=== PATIENT | female | born 1960 | race Two or more races ===

== ENCOUNTER 2024-05-28 19:16 | Emergency (ER) | payer BC, SELFPAY ==
[2024-05-28 19:16] VITALS: BMI 27.4
[2024-05-28 19:42] VITALS: BP 125/80; PULSE 78; RESP 18; TEMP 36.9; O2SAT 99
[2024-05-28] MEDS: TETRACAINE PF OP SOL 0.5% 4 ML DRPETTE 1 DROP LEFT EYE (20:14)
[2024-05-28] MEDS: FLUORESCEIN SOD 1 MG STRP LEFT EYE (20:14)
--- NOTE | 2024-05-28 20:47 | EDNOTE_ITS ---
ED Eye Problem RME/HPI General Chief complaint: Eye Problems Stated complaint: Swelling and redness to left eye Time Seen by Provider: 05/28/24 20:03 Arrival date/time: 05/28/24 19:16 63F with history of DM presents to ED with 3 days of L eye redness. Patient woke up like that w/o known fall/trauma. Patient denies pain initially, though there is some irritation now. Patient denies discharge, vision changes, LOC, AMS, seizures, N/V, and slurred speech. Limitations: no limitations Related Data Home Medications ?Medication ?Instructions ?Recorded ?Confirmed atorvastatin 20 mg tablet 20 mg PO QDAY 03/25/1804/30 metformin 1,000 mg tablet 1,000 mg PO BID 03/25/1809/11 Previous Rx's ?Medication ?Instructions ?Recorded ondansetron 4 mg disintegrating 4 mg PO Q4HR PRN nause a and 03/09/19 tablet vomiting #10 tabs psyllium husk 3 gram/5.4 gram oral 1 tbsp PO QDAY PRN constipation 10/25/20 powder #284 grams pantoprazole 40 mg tablet,delayed 40 mg PO QDAY #30 ta bs 10/01/22 release (Protonix) Allergies Allergy/AdvReac Type Severity Reaction Status Date / Time No Known Allergies Allergy Verified 05/15/22 19:38 Review of Systems Review of Systems Systems Reviewed: All systems reviewed, normal except as documented Constitutional Constitutional: Reports system reviewed and no additional complaints, except as documented, Denies fever(s) and Denies headache(s) Eyes Eyes: Reports as per HPI and Reports irritation (redness) ENT Ears, Nose, Mouth, and Throat: Denies disequilibrium and Denies headache(s) Cardiovascular Cardiovascular: Reports system reviewed and no additional complaints, except as documented, Denies chest pain and Denies dyspnea Respiratory Respiratory: Reports system reviewed and no additional complaints, except as documented, Denies cough and Denies dyspnea Gastrointestinal Gastrointestinal: Reports system reviewed and no additional complaints, except as documented, Denies abdominal pain, Denies nausea and Denies vomiting Neurologic Neurologic: Reports system reviewed and no additional complaints, except as documented, Denies confusion, Denies disequilibrium and Denies headache(s) Psychiatric Psychiatric: Denies confusion Past Medical History Past Medical History CARDIAC: Positive Hypercholesterolemia; Negative Cardiac Disorders or Congestive Heart Failure RESPIRATORY: Negative Chronic Obstructive Pulmonary Disease (COPD) or Asthma GENITOURINARY: Negative Renal Disease ENDOCRINE: Positive Endocrine Disorders and Diabetes Mellitus Type 2; Negative Diabetes Mellitus Type 1 HEMATOLOGIC: Negative Sickle Cell Disease Surgical History SURGICAL: Positive Section Social History SMOKING STATUS: Never smoker SUBSTANCE USE: does not use ED Exam General Limitations: Present no limitations General appearance: Present alert and in no apparent distress Head Head exam: Present atraumatic Eye Eye exam: Present PERRL, EOMI and conjunctival injection (L well-demarcated area) ENT ENT exam: Present normal exam, normal oropharynx and mucous membranes moist Neck Neck exam: Present normal inspection, full ROM and trachea midline Chest Chest inspection: Present normal inspection and symmetric chest wall rise Respiratory Respiratory exam: Present normal lung sounds bilaterally Cardiovascular Cardiovascular exam: Present regular rate, normal rhythm and normal heart sounds Abdominal Exam Abdominal exam: Present soft and normal bowel sounds Extremities Exam Extremities exam: Present normal inspection and full ROM Back Exam Back exam: Present normal inspection and full ROM Neurological Exam Neurological exam: Present alert, oriented X3 and CN II-XII intact Psychiatric Psychiatric exam: Present normal affect and normal mood Skin Skin exam: Present warm, dry, intact and normal color Course Quality Measures none Orders Category Date Time Status Patel Lamp to Bedside X1 Care 05/28/24 20:03 Active Fluorescein Sodium [[id number]] Med 05/28/24 20:15 Discontinued 1 mg LEFT EYE X1 ONE TETRACAINE Op Maritza 0.5% [Pontocaine Op Maritza 0.5%] Med 05/28/24 20:03 Discontinued 1 drop LEFT EYE X1 ONE Vital Signs Vital signs: Vital Signs Temperature 98.5 F 05/28/24 19:42 Pulse Rate 78 05/28/24 19:42 Respiratory Rate 18 05/28/24 19:42 Blood Pressure 125/80 05/28/24 19:42 Pulse Oximetry (%) 99 05/28/24 19:42 Oxygen Delivery Method Room Air 05/28/24 19:42 O2 at 99% on RA and WNLs Eye MDM Narrative MDM Narrative:: 63F with history of DM presents to ED with 3 days of L eye redness. Patient woke up like that w/o known fall/trauma. Patient denies pain initially, though there is some irritation now. Patient denies discharge, vision changes, LOC, AMS, seizures, N/V, and slurred speech. Physical exam reveals L eye subconjunctival hemorrhage. Normal pupil response and EOM. Patient is afebrile, calm, and alert. Wood's lamp exam reveals no corneal abrasion or FB. Likely just hemorrhage. Assignment Manager given. Patient data External records reviewed:: [facility] previous records Clinical information provided by:: patient Social determinants that could affect healthcare access:: none Patient has the following chronic illnesses:: none How is presenting disease/condition affected by chronic disease/condition?: no chronic disease Evaluation data The following diagnostics were reviewed and interpreted by me:: other (specify) (none) Lab and/or radiology exams considered but not ordered:: not ordered Interpretation Summary: n/a Medications / Prescriptions Medications or Prescriptions considered but not ordered:: ordered Medication administrations:: Medication Administration History Discontinued Medications Fluorescein Sodium (Fluorescein Sod 1 Mg Strp) 1 mg LEFT EYE X1 ONE Stop: 05/28/24 20:16 Last Admin: 05/28/24 20:14 Dose: 1 mg Documented By: Tetracaine HCl (Tetracaine Pf Op Maritza 0.5% 4 Ml Drpette) 1 drop LEFT EYE X1 ONE Stop: 05/28/24 20:04 Last Admin: 05/28/24 20:14 Dose: 1 drop Documented By: above Consultations Consultation(s) initiated? (list below): No Diagnosis Eye Problem Differential Diagnosis: corneal abrasion, conjunctivitis, acute iritis, hyphema, periorbital cellulitis, subconjunctival hemorrhage, glaucoma, corneal ulcer and ruptured globe Most likely diagnosis given after review of the tests above:: subconjunctival hemorrhage Admission Indicated Admission indicated?: not indicated Admission Request Was there a request for admission?: No Disposition Plan Disposition Plan: Discharge Discharge Attestation Discharge Attestation: The patient and all family members were given an opportunity to ask questions and understood the discharge instructions. Discharge instructions specifically effects, indications for sooner follow up or return to the emergency department, and the expected course of current diagnosis. Patient condition: Stable Discharge Plan Plan Patient Disposition: HOME (Self Care) Disposition Comment: Stable Prescriptions/Referrals Prescriptions/Med Rec: No Action atorvastatin 20 mg Tablet 20 mg PO QDAY metformin 1,000 mg Tablet 1,000 mg PO BID ondansetron 4 mg tablet,disintegrating 4 mg PO Q4HR PRN (Reason: nausea and vomiting) Qty: 10 0RF psyllium husk 3 gram/5.4 gram powder 1 tbsp PO QDAY PRN (Reason: constipation ) Qty: 284 0RF Rx Instructions: mix into at least 8 oz of water or juice before administering pantoprazole [Protonix] 40 mg tablet,delayed release (DR/EC) 40 mg PO QDAY Qty: 30 0RF Referrals: No Primary/Family,Physician [Primary Care Provider] - In 1 week Problem List Clinical Impression: Subconjunctival hemorrhage Patient/Caregiver Discharge Instructions Education Materials: ED Subconjunctival Hemorrhage Additional Instructions: Please follow-up with PCP within 24-48 hours and return immediately if symptoms worsen. See eye doctor in a few days. Print Language: Wolof Stand Alone Forms: Patient Portal Info Letter PA/WOUND CARE SPECIALIST Supervising Physician MONO/WOUND CARE SPECIALIST Supervising Physician: Dr. Kaba
[2024-05-28 21:08] VITALS: BP 122/76; PULSE 76; RESP 18; TEMP 36.7; O2SAT 98
== END 2024-05-28 21:09 | disposition home or self-care (01) ==
PROVIDERS: Emergency Provider Emergency Medicine
DX: H11.32 Conjunctival hemorrhage, left eye (principal)
CPT/HCPCS: 99283